=== PATIENT | male | born 1975 | race African-American/Black ===

== ENCOUNTER 2016-10-20 15:42 | Emergency (ER) | payer MEDICAID ==
[~2016-10-20] VITALS: Ht 185.4 cm; Wt 111.8 kg
[2016-10-20 15:43] VITALS: BP 162/95
[2016-10-20] MEDS ORDERED: ASPIRIN 81 MG TABLET CHEW PO ONE (16:00)
[2016-10-20] MEDS ORDERED: KETOROLAC 30 MG/1 ML IM ONE (16:30)
[2016-10-20] MEDS ORDERED: ASPIRIN 81 MG TABLET CHEW ONE (16:33)
[2016-10-20] MEDS ORDERED: KETOROLAC 30 MG/1 ML ONE (16:33)
[2016-10-20 16:41] LABS: BLOOD UREA NITROGEN 10 mg/dL (7-18)
[2016-10-20 16:48] LABS: IS PT STATUS REG ER OR PRE ER? YES
== END 2016-10-20 18:13 | disposition home or self-care (01) ==
LOC: ED 16:47
DX: R07.89 Other chest pain (principal)
CPT/HCPCS: 36415; 71010; 80048; 82040; 84484; 85025; 93005; 99285